=== PATIENT | male | born 1985 | race Caucasian/White ===

== ENCOUNTER 2017-11-25 23:12 | Emergency (ER) | payer MEDICAID ==
[~2017-11-25] VITALS: Ht 162.6 cm; Wt 72.0 kg
[2017-11-25] MEDS ORDERED: ONDANSETRON HCL 4MG/2ML VIAL IV STA (23:58)
[2017-11-25] MEDS ORDERED: SODIUM CHLORIDE 0.9% 1,000 ML IV ONE (23:58)
[2017-11-25] MEDS ORDERED: PANTOPRAZOLE SODIUM 40 MG/VIAL IV STA (23:58)
[2017-11-25] MEDS ORDERED: OCTREOTIDE ACETATE 50 MCG/ML 1ML IV STA (23:58)
[2017-11-26] MEDS ORDERED: LORAZEPAM 2MG/ML CPJ IV ONE
[2017-11-26 00:36] LABS: BASOPHILS % 0.5 % (0.0-2.0); EOSINOPHILS % 0.4 % (0.0-5.0); HEMATOCRIT. 47.9 % (42.0-52.0); LYMPHOCYTES % 31.2 % (20.0-50.0); MEAN CORPUSCULAR HEMOGLOBIN 30.3 pg (28.0-32.0); MEAN CORPUSCULAR VOLUME 90.8 fL (80.0-94.0); MEAN PLATELET VOLUME 9.5 fl (7.4-10.4); MONOCYTES % 4.4 % (2.0-8.0); NEUTROPHILS % 63.5 % (40.0-76.0); PLATELET 218 x1000/uL (130-400); RED BLOOD CELL COUNT 5.27 mill/uL (4.7-6.1); RED CELL DISTRIBUTION WIDTH 13.9 % (11.6-14.6)
[2017-11-26 00:43] LABS: PARTIAL THROMBOPLASTIN TIME 23.6 sec (23.4-31.0); PROTHROMBIN TIME 10.7 sec (9.4-11.6)
[2017-11-26 00:56] LABS: CHLORIDE 109 mEq/L (98-107); TROPONIN I < 0.02 ng/mL (0.00-0.04)
[2017-11-26] MEDS ORDERED: SODIUM CHLORIDE 0.9% 1,000 ML IV SCH (01:25)
[2017-11-26 11:59] VITALS: BP 119/59
[2017-11-26] MEDS ORDERED: HYDROCODONE/ACETAMINOPHEN 5/325MG TABLET PO PRN (12:00)
[2017-11-26] MEDS ORDERED: ACETAMINOPHEN 325MG TABLET PO PRN (12:00)
[2017-11-26] MEDS ORDERED: DIPHENHYDRAMINE 50MG/ML VIAL IV PRN (12:00)
[2017-11-26] MEDS ORDERED: ONDANSETRON HCL 4MG/2ML VIAL IV PRN (12:00)
[2017-11-26] MEDS ORDERED: IPRATROPIUM/ALBUTEROL 0.5-3(2.5)MG/3ML NEB INH PRN (12:00)
[2017-11-26] MEDS ORDERED: CLONIDINE 0.1MG TABLET PO PRN (12:00)
== END 2017-11-26 12:05 | disposition left against medical advice (07) ==
LOC: ER 23:12 → EDBEDREQ 11-26 00:07 → EDBEDREQTM 11-26 01:32 → EDBEDREQ 11-26 01:32 → EDBEDREQSVC 11-26 01:32 → CANBEDREQ 11-26 11:53 → ER 11-26 12:05
DX: R74.0 Nonspecific elevation of levels of transaminase and lactic acid dehydrogenase [LDH] (principal); K92.0 Hematemesis; I10 Essential (primary) hypertension; F10.239 Alcohol dependence with withdrawal, unspecified; K74.60 Unspecified cirrhosis of liver; R56.9 Unspecified convulsions; Z98.890 Other specified postprocedural states
CPT/HCPCS: 36415; 71045; 80053; 83690; 84484; 85025; 85610; 85730; 86850; 86900; 86901; 96361; 96374; 96375; 99291; C9113; J2060; J2354; J2405; J7030; Z7610